=== PATIENT | female | born 1965 | race Caucasian/White ===

== ENCOUNTER → 2020-10-06 | Day surgery (SDC) | payer BC ==
[2020-10-06 12:17] VITALS: BP 135/82; PULSE 87; RESP 16; TEMP 98.4
--- NOTE | 2020-10-06 14:45 | USB ---
EXAMINATION TYPE: US discontinued breast bx LT DATE OF EXAM: 10/06/2020 HISTORY: Previous abnormal Comparison: Outside ultrasound and left breast 09/27/2020 Multiple unsuccessful attempts were made at localizing the area of concern left lower inner quadrant. No lesion was identified. Of note is a lymph node at the 5:00 position. Biopsy was therefore discont inued and this was discussed with the patient. Recommendation is for six-month follow-up ultrasound a nd mammography of the left breast. IMPRESSION: 1. Probably benign BI-RADS 3 Recommendation: 6 month follow-up left breast ultrasound and mammography.
== END ==
LOC: RADUSWWP 12:02
PROVIDERS: ATTEND Internal Medicine Geriatric Medicine
DX: R92.8 Other abnormal and inconclusive findings on diagnostic imaging of breast (principal); Z53.8 Procedure and treatment not carried out for other reasons

== ENCOUNTER → 2020-12-06 | Day surgery (SDC) | payer BC ==
[2020-12-01 15:55] VITALS: BMI 28.1
[~2020-12-06] MED LIST: LACTATED RINGERS 1,000 ML IV ONE; LACTATED RINGERS 1,000 ML IV SCH; LIDOCAINE 1% (10MG/ML) FOR IV START INTRADERMA PRN; LIDOCAINE 1% INJ 10MG/ML (20 ML MDV) ONE; PROPOFOL 10 MG/ML 20 ML VIAL IV ONE
[2020-12-06 11:40] VITALS: TEMP 97.8
--- NOTE | 2020-12-06 12:39 | P.PCN ---
Date of Procedure: 12/06/20 Description of Procedure: BRIEF HISTORY: Patient is a 55-year-old female presenting for outpatient colonoscopy for follow-up of positive Cologard. No change in bowel habits, blood per rectum or abdominal pain. No prior colonoscopy. She denies any family history of colon cancer. PROCEDURE PERFORMED: Colonoscopy with polypectomy . PREOPERATIVE DIAGNOSIS: Positive Cologard, no prior colonoscopy. ESTIMATED BLOOD LOSS: Minimal. IV sedation per Anesthesia. PROCEDURE: After informed consent was obtained, the patient, was brought into the endoscopy unit. IV sedation was administered by Anesthesia under continuous monitoring. Digital rectal examination was normal. Initially the Olympus CF-190 flexible video colonoscope was then inserted in the rectum, gradually advanced into the cecum without any difficulty. Careful examination was performed as the scope was gradually being withdrawn. Ileocecal valve and the appendiceal orifice were visualized and appeared normal. Prep was excellent. Mucosa of the cecum, ascending colon, transverse colon, descending colon, sigmoid colon, and rectum appeared normal. a diminutive 1 mm transverse colon polyp was removed with cold forcep polypectomy. Retroflexion was performed in the rectum and no lesions were seen, Low-grade internal hemorrhoids. The patient tolerated the procedure well. IMPRESSION: Diminutive transverse colon polyp removed with cold forcep polypectomy. Internal hemorrhoids. RECOMMENDATIONS: Findings of this examination were discussed with the patient and her family. Okay to resume diet. Okay to resume medications. Await pathology from polypectomy. Recommend repeat colonoscopy in 7 years pending pathology from polypectomy .
[2020-12-06 13:06] VITALS: BP 137/70; PULSE 78; RESP 18
== END ==
LOC: ORWHC2ENDO 11:22
PROVIDERS: ATTEND Internal Medicine
DX: K63.5 Polyp of colon (principal); K64.8 Other hemorrhoids; E07.9 Disorder of thyroid, unspecified; Z79.890 Hormone replacement therapy
CPT/HCPCS: 88305; 45380; J2001; J2704

== ENCOUNTER → 2022-10-16 | Outpatient (CLI) | payer BC ==
--- NOTE | 2022-10-17 08:33 | MM ---
Reason for Exam: Screening (asymptomatic). Last mammogram was performed 2 year(s) and 0 month(s) ago. Patient History: Menarche at age 13. First Full-Term at age 27. Postmenopausal. 10/06/2020, US discontinued breast bx LT on the left side. Risk Values: Mago 5 year model risk: 1.4%. NCI Lifetime model risk: 8.7%. Prior Study Comparison: 09/08/2020 Bilateral MG 3D screening mammo w/cad, [facility]. 09/27/2020 Left MG work up mamm w CAD LT - 2, [facility]. Tissue Density: There are scattered fibroglandular densities. Findings: Analyzed By CAD. Stable oval circumscribed masses in the bilateral breasts. Benign-appearing bilateral axillary lymph nodes are redemonstrated. There is no suspicious new group of microcalcifications or new suspicious mass in either breast. Overall Assessment: Benign, BI-RAD 2 Management: Screening Mammogram of both breasts in 1 year. A clinical breast exam by your physician is recommended on an annual basis and results should be correlated with mammographic findings. Electronically signed and approved by: Ronaldo Garcias M.D.
== END | disposition home or self-care (01) ==
LOC: RADMAMWWP 07:36
PROVIDERS: ATTEND Internal Medicine Geriatric Medicine
DX: Z12.31 Encounter for screening mammogram for malignant neoplasm of breast (principal); Z78.0 Asymptomatic menopausal state; Z98.890 Other specified postprocedural states
CPT/HCPCS: 77063; 77067

== ENCOUNTER → 2023-10-22 | Outpatient (CLI) | payer BC ==
--- NOTE | 2023-10-22 15:15 | MM ---
Reason for Exam: Screening (asymptomatic). Last mammogram was performed 1 year(s) and 1 month(s) ago. Patient History: Menarche at age 13. First Full-Term at age 27. Postmenopausal. 10/06/2020, US discontinued breast bx LT on the left side. Risk Values: Mago 5 year model risk: 1.5%. NCI Lifetime model risk: 8.5%. Prior Study Comparison: 09/08/2020 Bilateral MG 3D screening mammo w/cad, [facility]. 09/27/2020 Left MG work up mamm w CAD LT - 2, [facility]. 10/16/2022 Bilateral MG 3D screening mammo w/cad, [facility]. Tissue Density: There are scattered fibroglandular densities. Findings: Analyzed By CAD. There is a focal asymmetry within the lower outer left breast. Benign calcification within the posterior left breast. Couple of rounded benign appearing oval densities are within the outer bilateral breasts. No suspicious groups of microcalcifications, spiculated or lobular masses, architectural distortion or other secondary signs of malignancy are mammographically apparent. Overall Assessment: Benign, BI-RAD 2 Management: Screening Mammogram of both breasts in 1 year. A negative mammogram report should not preclude additional follow up of suspicious palpable abnormalities. Patient should continue monthly self breast exam. A clinical breast exam by your physician is recommended on an annual basis and results should be correlated with mammographic findings. Electronically signed and approved by: Kyler Evans D.O. Radiologis
== END | disposition home or self-care (01) ==
LOC: RADMAMWWP 06:56
PROVIDERS: ATTEND Internal Medicine Geriatric Medicine
DX: Z12.31 Encounter for screening mammogram for malignant neoplasm of breast (principal); Z78.0 Asymptomatic menopausal state
CPT/HCPCS: 77063; 77067

== ENCOUNTER → 2024-11-18 | Outpatient (CLI) | payer BC ==
--- NOTE | 2024-11-24 07:21 | MM ---
Reason for Exam: Screening (asymptomatic). Last screening mammogram was performed 12 month(s) ago. Patient History: Menarche at age 13. First Full-Term at age 27. Postmenopausal. 10/06/2020, US discontinued breast bx LT on the left side. Risk Values: Mago 5 year model risk: 1.5%. NCI Lifetime model risk: 8.3%. Prior Study Comparison: 09/27/2020 Left MG work up mamm w CAD LT - 2, [facility]. 10/16/2022 Bilateral MG 3D screening mammo w/cad, [facility]. 10/22/2023 Bilateral MG 3D screening mammo w/cad, [facility]. Tissue Density: The breasts are almost entirely fatty. Findings: Analyzed By CAD. Right breast: There is no suspicious group of microcalcifications or new suspicious mass. Left breast: There is no suspicious group of microcalcifications or new suspicious mass. Benign-appearing calcifications left breast. Overall Assessment: Benign, BI-RAD 2 Management: Screening Mammogram of both breasts in [address] [facility] will attempt to contact patient to return for supplemental views and ultrasound if indicated. Patient should continue monthly self-breast exams. A clinical breast exam by your physician is recommended on an annual basis. This exam should not preclude additional follow-up of suspicious palpable abnormalities. Note on Mago scores and lifetime risk: 1. A Mago score greater than 3% is considered moderate risk. If this is the case, consider specialist referral to assess eligibility for a risk reducing agent. 2. If overall lifetime risk for the development of breast cancer is 20% or higher, the patient may qualify for future screening with alternating mammogram and breast MRI. [facility], , 11/24/2024 7:18 AM. Electronically signed and approved by: Nicola Lozano DO
== END | disposition home or self-care (01) ==
LOC: RADMAMWWP 07:09
PROVIDERS: ATTEND Internal Medicine Geriatric Medicine
DX: Z12.31 Encounter for screening mammogram for malignant neoplasm of breast (principal); Z78.0 Asymptomatic menopausal state; R92.313 Mammographic fatty tissue density, bilateral breasts
CPT/HCPCS: 77063; 77067